=== PATIENT | female | born 1955 | race American Indian/Alaskan Native ===

== ENCOUNTER 2022-06-22 13:55 | Emergency (ER) | payer OTHER ==
[2022-06-22] MEDS ORDERED: IBUPROFEN 600 MG TAB PO ONE (22:05)
[2022-06-22] MEDS ORDERED: predniSONE 50 MG TAB PO ONE (22:05)
--- NOTE | 2022-06-22 22:12 | Emergency Department Report ---
ED Extremity Problem HPI - General Chief complaint: Extremity Problem,Nontraumatic Stated complaint: RT FOOT NUMBNESS Source: patient Mode of arrival: Ambulatory Limitations: No Limitations - History of Present Illness Initial comments: Patient is a 66-year-old -[place] female with a history of pretension and [id number] diabetes who presents to the ED with complaint of acute onset persistent nontraumatic posterior right ankle and Achilles tendon pain with numbness and tingling sensation as well as low back pain for the last 3 days. Patient states that weightbearing on the right foot makes the pain in the posterior right ankle worse. Patient denies fall, traumatic injury, fever, chills, nausea and vomiting, dizziness, syncope, chest pain, right leg weakness, heavy lifting, hip pain, abdominal pain, chest pain and shortness of breath. MD Complaint: extremity pain (Posterior right ankle pain), other (Posterior right Achilles tendon pain) -: Gradual, days(s) (3) Location: right, lower extremity (Posterior right ankle and Achilles tendon pain) History of Same: No -: Yes arthralgia, No fever, No associated dyspnea, No associated chest pain Severity scale (0 -10): 7 Quality: aching, sharp Consistency: constant Improves with: nothing Worsens with: weight bearing, walking, exertion, palpation Associated Symptoms: denies other symptoms, arthralgias (Right ankle pain). denies: chest pain, shortness of breath, fever, myalgias, rash - Related Data Previous Rx's Medication Instructions Recorded Last Taken Type Naproxen 500 mg PO Q12H PRN #30 tab 06/22/22 Unknown Rx predniSONE [Deltasone] 40 mg PO QDAY #12 tab 06/22/22 Unknown Rx traMADoL [Ultram] 50 mg PO Q6HR PRN #12 tablet 06/22/22 Unknown Rx Allergies Allergy/AdvReac Type Severity Reaction Status Date / Time No Known Allergies Allergy Verified 06/22/22 15:36 ED Review of Systems ROS: Stated complaint: RT FOOT NUMBNESS Other details as noted in HPI Constitutional: denies: chills, fever Eyes: denies: eye pain, eye discharge, vision change ENT: denies: ear pain, throat pain Respiratory: denies: cough, shortness of breath, wheezing Cardiovascular: denies: chest pain, palpitations Endocrine: no symptoms reported Gastrointestinal: denies: abdominal pain, nausea, diarrhea Genitourinary: denies: urgency, dysuria, discharge Musculoskeletal: arthralgia (Posterior right ankle and Achilles tendon pain), myalgia. denies: back pain, joint swelling Skin: denies: rash, lesions Neurological: denies: headache, weakness, paresthesias Psychiatric: denies: anxiety, depression Hematological/Lymphatic: denies: easy bleeding, easy bruising ED Past Medical Hx - Past Medical History Previous Medical History?: Yes Hx Diabetes: Yes - Medications Home Medications: Home Medications Medication Instructions Recorded Confirmed Last Taken Type Naproxen 500 mg PO Q12H PRN #30 tab 06/22/22 Unknown Rx predniSONE [Deltasone] 40 mg PO QDAY #12 tab 06/22/22 Unknown Rx traMADoL [Ultram] 50 mg PO Q6HR PRN #12 tablet 06/22/22 Unknown Rx ED Physical Exam - General Limitations: No Limitations General appearance: alert, in no apparent distress - Head Head exam: Present: atraumatic, normocephalic, normal inspection - Eye Eye exam: Present: normal appearance, PERRL, EOMI Pupils: Present: normal accommodation - ENT ENT exam: Present: normal exam, normal orophraynx, mucous membranes moist, TM's normal bilaterally, normal external ear exam - Neck Neck exam: Present: normal inspection, full ROM. Absent: tenderness - Respiratory Respiratory exam: Present: normal lung sounds bilaterally. Absent: respiratory distress, wheezes, rales, rhonchi, stridor, chest wall tenderness, accessory muscle use, decreased breath sounds, prolonged expiratory - Cardiovascular Cardiovascular Exam: Present: regular rate, normal rhythm, normal heart sounds. Absent: systolic murmur, diastolic murmur, rubs, gallop - GI/Abdominal GI/Abdominal exam: Present: soft, normal bowel sounds. Absent: tenderness, guarding, rebound, rigid, hyperactive bowel sounds, hypoactive bowel sounds, organomegaly, mass, bruit - Extremities Exam Extremities exam: Present: normal inspection, tenderness (Palpable right ankle and right Achilles tendon tenderness with limited range of motion due to pain). Absent: full ROM (Limited range of motion of right ankle joint due to pain), normal capillary refill, pedal edema, joint swelling, calf tenderness - Back Exam Back exam: Present: normal inspection, full ROM, tenderness (Palpable lumbosacral paraspinal musculoskeletal tenderness), muscle spasm, paraspinal tenderness. Absent: CVA tenderness (R), CVA tenderness (L) - Neurological Exam Neurological exam: Present: alert, oriented X3, CN II-XII intact, normal gait, reflexes normal - Psychiatric Psychiatric exam: Present: normal affect, normal mood - Skin Skin exam: Present: warm, dry, intact, normal color. Absent: rash ED Course Vital Signs 06/22/22 15:25 Temperature 98.3 F Pulse Rate 68 Respiratory 14 Rate Blood Pressure 155/80 [Right] O2 Sat by Pulse 98 Oximetry ED Medical Decision Making - Medical Decision Making This is a 66-year-old -[place] female with a history of pretension and [id number] diabetes who presents to the ED with complaint of acute onset persistent nontraumatic posterior right ankle and Achilles tendon pain with numbness and tingling sensation as well as low back pain for the last 3 days. Patient states that weightbearing on the right foot makes the pain in the posterior right ankle worse. In the ED, patient is alert and oriented x3 and is not in any distress. Patient however appears to be in significant pain. Based on the history and physical exam findings, the patient symptoms are likely due to Achilles tendinitis and chronic low back pain with right-sided sciatica. Patient was therefore treated in the ED for pain and discharged home on pain medications and advised to follow-up with her primary care physician in 7 to 10 days for reevaluation or return to the ED immediately if symptoms get worse. - Differential Diagnosis Achilles tendinitis; osteoarthritis; muscle strain; muscle spasm; sciatica Critical care attestation.: If time is entered above; I have spent that time in minutes in the direct care of this critically ill patient, excluding procedure time. ED Disposition Clinical Impression: Achilles tendinitis of right lower extremity Chronic low back pain with right-sided sciatica Qualifiers: Back pain laterality: right Qualified Code(s): M54.41 - Lumbago with sciatica, right side; G89.29 - Other chronic pain Muscle strain of right ankle Qualifiers: Encounter type: initial encounter Qualified Code(s): S96.911A - Strain of unspecified muscle and tendon at ankle and foot level, right foot, initial encounter Disposition: HOME / SELF CARE / HOMELESS Is pt being admited?: No Does the pt Need Aspirin: No Condition: Stable Instructions: Muscle Strain, [id number], Elastic Bandage and RICE Therapy, Sciatica, [id number], Chronic Back Pain, [id number], Achilles Tendinitis Rehab-SportsMed, Tendinitis, [id number], Achilles Tendinitis Additional Instructions: Take medication with food, drink plenty of fluids, follow-up with your primary care physician in 7 to 10 days for reevaluation. Return to the ED immediately if symptoms get worse. Prescriptions: predniSONE [Deltasone] 40 mg PO QDAY #12 tab Naproxen 500 mg PO Q12H PRN #30 tab PRN Reason: Pain , Severe (7-10) traMADoL [Ultram] 50 mg PO Q6HR PRN #12 tablet PRN Reason: Pain Referrals: [facility] [Provider Group] - 7-10 days Forms: Work/School Release Form(ED) Time of Disposition: 22:16 Print Language: [place]
[2022-06-23 00:31] VITALS: BP 146/77
== END 2022-06-23 00:31 | disposition home or self-care (01) ==
LOC: ED 13:55
DX: M76.61 Achilles tendinitis, right leg (principal); M54.41 Lumbago with sciatica, right side; E11.9 Type 2 diabetes mellitus without complications
CPT/HCPCS: 99282; J7512